=== PATIENT | male | born 1960 | race Caucasian/White ===

== ENCOUNTER 2020-04-01 15:05 | Outpatient (REF) | payer OTHER, SELFPAY ==
[2020-04-01 15:47] LABS: Hematocrit 40.6 % (42-52); Hemoglobin 14.1 g/dl (14.0-18.0); Mean Corpuscular HGB Conc 34.7 g/dl (31.0-36.0); Mean Corpuscular Hemoglobin 31.3 pg (27.0-33.0); Mean Corpuscular Volume 90.2 fL (80-98); Mean Platelet Volume 10.5 fL (9.4-12.4); Platelet Count 150 X10*3/uL (160-400); Red Cell Distribution Width 11.9 % (11.0-16.0); White Blood Count 4.8 X10*3/uL (4.8-10.8)
[2020-04-01 16:23] LABS: Anion Gap 9 (12-20); Blood Urea Nitrogen 20 mg/dL (9-16); Calcium 8.7 mg/dL (8.4-10.2); Carbon Dioxide 30 mmol/L (22-29); Chloride 104 mmol/L (96-108); Estimated Glomerular Filt Rate > 60; Glucose Random 78 mg/dL (60-115); Potassium 4.4 mmol/l (3.3-5.1); Sodium 139 mmol/L (135-145)
== END 2020-04-01 15:06 | disposition home or self-care (01) ==
LOC: HO.LAB 15:05
PROVIDERS: PCP Physician Assistant; Visit Provider Physician Assistant
DX: R30.0 Dysuria (principal); N20.0 Calculus of kidney
CPT/HCPCS: 36415; 80048; 85027; 87086

== ENCOUNTER → 2020-06-20 14:43 | Outpatient (BNVA) | payer OTHER, SELFPAY | PROVIDERS: PCP Physician Assistant; Visit Provider Urology ==

== ENCOUNTER → 2020-08-29 07:59 | Outpatient (BNVA) | payer OTHER, SELFPAY | PROVIDERS: PCP Physician Assistant; Visit Provider Physician Assistant ==

== ENCOUNTER 2020-10-31 09:52 | Day surgery (SDC) | payer OTHER, SELFPAY ==
[2020-10-25 15:06] VITALS: BMI 21.9
--- NOTE | 2020-10-30 09:01 | HO.ANESPROP2 ---
Documented by User: Lazara Whitmore 10/30/20 09:01 HPI - Anesthesia Eval Consult details Narrative: 59yo M for Upper Endoscopy and Colonoscopy [facility] Active Problems Active Problems: All Active Problems (Updated 10/25/20 @ 15:09 by Hellen London) Dysuria (Acute) Nephrolithiasis (Acute) HTN (hypertension) (Acute) BPH w urinary obs/LUTS (Acute) Weak urinary stream (Acute) Annual physical exam (Acute) Colon cancer screening (Acute) Dysphagia (Acute) Past Medical History Medical History (Updated 10/25/20 @ 15:09 by Hellen London) BPH (benign prostatic hyperplasia) COVID-19 vaccine administered History of kidney stones HTN (hypertension) Hx of corrected cleft lip and palate Family History Family History Father Hypertension Obese Mother No problems noted. Sister Breast cancer Paternal Grandmother Myocardial infarction Surgical History Surgical History History of colonoscopy History of right knee surgery Social History Social History (Updated 08/29/20 @ 08:06 by Iveth Horvath CMA) Household Members: Spouse Are you a primary personal care service provider to a significant other at home: No Do you presently have visiting nurse or other home services: No Alcohol intake: current Alcohol intake frequency: a few times a week Patient Tobacco Use Status: Never used Tobacco Use of substances other than those prescribed or required for medical reasons: No Have you been hit, kicked, punched, or otherwise hurt by someone within the past year? If so, by whom?: No Are you DNR?: No Advance Directives: No Advance Directives Information Provided: No Advance Directives on File: No Current occupational status: retired Meds Allergies Allergy/AdvReac Type Severity Reaction Status Date / Time cefuroxime [From CEFTIN] Allergy Unknown RASH Verified 10/25/20 14:33 cephalexin [From KEFLEX] Allergy Unknown RASH Verified 10/25/20 14:33 moxifloxacin [From AVELOX] Allergy Unknown RASH Verified 10/25/20 14:33 Home Medications Medication Instructions Recorded Confirmed Last Taken Type alfuzosin 10 mg tablet,extended 10 mg PO DAILY 04/01/20 10/25/20 Unknown History release 24 hr omeprazole 20 mg tablet,delayed 20 mg PO DAILY 04/01/20 10/25/20 Unknown History release Exam Exam Date and Time: October 30, 2020900 Height,Weight and Vital Signs: Height 5 ft 11.5 in Weight 72.575 kg Assessment and Plan Assessment Anesthesia Assessment: Chart Reviewed Documented by User: Ruben Mckeon MD 10/31/20 11:17 [facility] Past Medical History Medical History (Updated 10/25/20 @ 15:09 by Hellen London) BPH (benign prostatic hyperplasia) COVID-19 vaccine administered History of kidney stones HTN (hypertension) Hx of corrected cleft lip and palate Family History Family History Father Hypertension Obese Mother No problems noted. Sister Breast cancer Paternal Grandmother Myocardial infarction Surgical History Surgical History History of colonoscopy History of right knee surgery Social History Social History (Updated 08/29/20 @ 08:06 by Iveth Horvath [facility]) Household Members: Spouse Are you a primary personal care service provider to a significant other at home: No Do you presently have visiting nurse or other home services: No Alcohol intake: current Alcohol intake frequency: a few times a week Patient Tobacco Use Status: Never used Tobacco Use of substances other than those prescribed or required for medical reasons: No Have you been hit, kicked, punched, or otherwise hurt by someone within the past year? If so, by whom?: No Are you DNR?: No Advance Directives: No Advance Directives Information Provided: No Advance Directives on File: No Current occupational status: retired Meds Allergies Allergy/AdvReac Type Severity Reaction Status Date / Time cefuroxime [From CEFTIN] Allergy Unknown RASH Verified 10/25/20 14:33 cephalexin [From KEFLEX] Allergy Unknown RASH Verified 10/25/20 14:33 moxifloxacin [From AVELOX] Allergy Unknown RASH Verified 10/25/20 14:33 Home Medications Medication Instructions Recorded Confirmed Last Taken Type alfuzosin 10 mg tablet,extended 10 mg PO DAILY 04/01/20 10/25/20 Unknown History release 24 hr omeprazole 20 mg tablet,delayed 20 mg PO DAILY 04/01/20 10/25/20 Unknown History release Exam Airway Mallampati Class: I TM Dist: >3cm Neck ROM: Full Loose/Missing/Broken Teeth: Yes Heart: RRR Assessment and Plan Assessment Anesthesia Assessment: Anesthesia Plan Discussed and Chart Reviewed Final Anesthetic Review NPO: Yes ASA Class: II Final Preanesthetic Review: No Changes in Pt Med Stat, Meds/Allgs Chart Reviewed, Consent Obtained/Reviewed and Anes Risks/Benef Reviewed Patient Risk: Low Procedure Risk: Low Anesthetic Plan Anesthetic Plan: MAC: Disposition: Standard PACU
[2020-10-31] VITALS (7 sets, daily range): BP systolic 113–135; BP diastolic 69–88; PULSE 45–56; RESP 16–18; TEMP 35.9–36.7; O2SAT 99–100
--- NOTE | 2020-10-31 10:10 | PC.NURSE ---
PATIENT STATES HE HAS A DNR FILLED OUT AND WAS INSTRUCTED TO BRING INTO THE HOSPITAL THE NEXT TIME HE COMES IN TO PU T ON FILE. MOLST FORM ENT HOME WITH HIM WELL AND INSTRUCTED TO FILL OUT WITH PCP. HE ALSO STATED HIS HCP IS HIS .
[2020-10-31] MEDS: Lactated Ringers 1,000 ML 100 ML IVCONT (10:26)
--- NOTE | 2020-10-31 10:59 | P.HPSUR_ITS ---
Pre-Procedural Eval Section B Chief Complaint: Dysphagia, Screening Relevant Family History (Specify if Yes): No Relevant Social History: None Present Medications: see Short Stay Collaborative assessment Medical History: Significant History (BPH (benign prostatic hyperplasia) COVID- 19 vaccine administered History of kidney stones HTN (hypertension) Hx of corrected cleft lip and palate) History of Previous Operations: Relevant previous surgery/procedure and date(s) (History of colonoscopy History of right knee surgery) Allergies: Allergies Allergy/AdvReac Type Severity Reaction Status Date / Time cefuroxime [From CEFTIN] Allergy Unknown RASH Verified 10/25/20 14:33 cephalexin [From KEFLEX] Allergy Unknown RASH Verified 10/25/20 14:33 moxifloxacin [From AVELOX] Allergy Unknown RASH Verified 10/25/20 14:33 Review of Systems Sugical H&P ROS: Negative: Constitution, Cardiovascular, Respiratory, Neurological, Psychiatric, Hem-Onc, Allergic/Immunologic, Gastrointestinal, Genitourinary, Musculoskeletal, Integumentary, Endocrine and Eyes/Ears/Nose/Throat Exam Surgical H&P Exam: Normal: HEENT, Normal: Heart, Normal: Lungs, Normal: Extremities, Normal: Abdomen, Normal: Skin and Normal: Neurological Plan Diagnosis/Plan: Unchanged I have reviewed the history and physical and performed a pertinent physical examination on my patient. No changes have occurred unless specified.
--- NOTE | 2020-10-31 11:37 | PC.NURSE ---
patient spoke to anesthesia and stated he was a full code. he said he was confused with the previous question. full code.
--- NOTE | 2020-10-31 12:54 | P.OP_ITS ---
Operative Note Operative Note Date of Service: 10/31/20 Narrative: Operative Information Procedure Description: EGD, Colonoscopy FLEXIBLE TRANSORAL UPPER GASTROINTESTINAL ENDOSCOPY AND COLONOSCOPY PROCEDURE NOTE UPPER ENDOSCOPY Consent: Indications for the procedure and potential complications of bleeding, perforation, reaction to medications and missed diagnosis were discussed with the patient and informed consent was obtained. Instrument: Olympus GIF H 190 J mid size upper endoscope Monitoring: Vital signs and clinical assessment, continuous EKG monitoring, Pulse oximetry, Carbon Dioxide monitoring and blood pressure monitoring were done throughout the procedure. Procedure: The patient was placed in the left lateral decubitis position and pre-procedure medications were administered and a bite block was placed. The endoscope was inserted into the mouth and advanced under direct vision to the third part of duodenum. A careful inspection was made as the upper endoscope was withdrawn including a retroflexed examination of the proximal stomach; Findings and interventions are described below. Findings: Larynx:normal Esophagus: GE junction at 45 cm, diaphragm hiatus at 45 cm, 18 then 19 mm balloon dilation done at GEj with small tear noted, distal and proximal esophageal bx taken Stomach: Normal mucosa. Biopsies were obtained. Grade 2 flap valve on retroflexed examination of the cardia. Few small fundic gland polyps noted Duodenum: Normal bulb and descending duodenum, Intervention: Biopsies as noted above COLONOSCOPY Instrument: Olympus variable stiffness pediatric scope 190L Colonoscopy Monitoring: Vital signs and clinical assessment, continuous EKG monitoring, Pulse oximetry, Carbon Dioxide monitoring and blood pressure monitoring were done throughout the procedure. Colon withdrawal time was 12 minutes. Procedure: The patient was placed in the left lateral decubitis position and pre-procedure medications were administered. After a digital rectal examination of the ano-rectum, the video colonoscope was inserted into the rectum and advanced through the colon to the cecum/TI. The colonoscope was slowly withdrawn in a retrograde panoramic fashion and the colon mucosa was carefully examined including a retroflexed view of the rectum. Findings and interventions are described below. Procedure Difficulty:easy Findings: Terminal Ileum- nodular lymphoid hyperplasia noted Cecum:normal Ascending Colon: normal Transverse Colon -normal Descending Colon:normal Sigmoid Colon: normal Rectum: Retroflexion with small internal hemorrhoids, grade I Anorectum - normal Colon preparation: [place] Bowel Preparation Scale Right colon; 2 Transverse colon: 2 Left colon; 2 (0 = Unprepared colon segment with mucosa not seen due to solid stool that c annot be cleared. 1 = Portion of mucosa of the colon segment seen, but other areas of the colon segment not well seen due to staining, residual stool and/or opaque liquid. 2 = Minor amount of residual staining, small fragments of stool and/or opaque liquid, but mucosa of colon segment seen well. 3 = Entire mucosa of colon segment seen well with no residual staining, small fragments of stool or opaque liquid) Impression and Post Procedure Diagnosis: Endoscopy Findings: esophageal stricture fundic gland polyps Colonoscopy Findings: internal hemorrhoids Plan: Await Pathology results Repeat Colonoscopy in 10 years or earlier if clinically indicated High fiber diet leaflet avoid straining at stool, epsom salts and sitz bath, anusol supps or cream as needed Above findings were reviewed with the patient and relevant handouts were provided if indicated.
--- NOTE | 2020-10-31 12:54 | PM.OP ---
Brief Operative Note Date of Service: 10/31/20 Pre-op diagnosis: dysphagia, colon screening Post-op diagnosis: same Procedure: see op note Surgeon: Johnson Allan MD Anesthesia: MAC Was an Feeder Switchboard Operator used for this Procedure?: No Estimated blood loss (mL): 0 Condition: stable Disposition: PACU
== END 2020-10-31 15:01 | disposition home or self-care (01) ==
PROVIDERS: PCP Physician Assistant; Visit Provider Internal Medicine Gastroenterology
PROC: (CPT 45378; principal; 2020-10-31 11:10)
DX: Z12.11 Encounter for screening for malignant neoplasm of colon (principal); K64.0 First degree hemorrhoids; K22.2 Esophageal obstruction; R13.10 Dysphagia, unspecified; K31.7 Polyp of stomach and duodenum; K44.9 Diaphragmatic hernia without obstruction or gangrene; N40.0 Benign prostatic hyperplasia without lower urinary tract symptoms; I10 Essential (primary) hypertension; Z79.899 Other long term (current) drug therapy; Z88.1 Allergy status to other antibiotic agents
CPT/HCPCS: 45378; 43249; 43239; 88305; 88342; C1726

== ENCOUNTER → 2020-11-13 12:52 | Outpatient (BNVA) | payer OTHER, SELFPAY | PROVIDERS: PCP Physician Assistant; Visit Provider Physician Assistant ==

== ENCOUNTER → 2021-01-16 13:01 | Outpatient (BNVA) | payer OTHER, SELFPAY | PROVIDERS: PCP Physician Assistant; Visit Provider Physician Assistant ==

== ENCOUNTER → 2021-07-10 13:19 | Outpatient (BNVA) | payer OTHER, SELFPAY | PROVIDERS: Visit Provider Physician Assistant ==